=== PATIENT | female | born 1950 | race Caucasian/White ===

== ENCOUNTER 2018-05-10 07:23 | Emergency (ER) | payer MEDICARE ==
[~2018-05-10] VITALS: Ht 162.6 cm; Wt 60.3 kg
--- NOTE | 2018-05-10 08:15 | NUR ---
PT BIB S. STATING "INJURED ARM WHILE PLAYING SOFTBALL". MD AT BEDSIDE. XRAY PERFORMED. AOX4, NO ACUTE DISTRESS NOTED. WILL CONTINUE TO MONITOR.
--- NOTE | 2018-05-10 08:30 | NUR ---
X-RAY PERFORMED AT BEDSIDE. AWAITING FURTHER ORDERS. AWARE
--- NOTE | 2018-05-10 08:45 | NUR ---
SPLINT APPLIED PER ORDERS.
[2018-05-10 08:54] VITALS: BP 182/102
== END 2018-05-10 08:50 | disposition home or self-care (01) ==
LOC: ER 07:25
DX: S52.602A Unspecified fracture of lower end of left ulna, initial encounter for closed fracture (principal); I10 Essential (primary) hypertension; E03.9 Hypothyroidism, unspecified; Z88.0 Allergy status to penicillin; Z60.2 Problems related to living alone; W21.07XA Struck by softball, initial encounter; Y93.64 Activity, baseball; Y92.89 Other specified places as the place of occurrence of the external cause; Y99.8 Other external cause status
CPT/HCPCS: 73110; A4606; Z7610